=== PATIENT | male | born 1935 | race Caucasian/White ===

== ENCOUNTER 2021-02-21 11:07 | Inpatient (IN) ==
[2021-02-21] MEDS ORDERED: SODIUM CHLORIDE 0.9% 1,000 ML IV STA (12:02)
[2021-02-21 12:47] LABS: Basophils # 0.1 10*3/uL (0.0-0.2); Basophils % 0.4 % (0.0-0.8); Eosinophils # 0.4 10*3/uL (0.0-0.87); Eosinophils % 2.6 % (0.00-10.9); Hematocrit 29.5 VOL% (42.0-52.0); Hemoglobin 9.6 GM/DL (14.0-18.0); Immature Granulocytes % 12.8 %; Immature Granulocytes Absolute 1.71 #; Lymphocytes # 2.4 10*3/uL (1.4-4.0); Lymphocytes % 18.2 % (21.2-54.2); Mean Corpuscular HGB Conc 32.5 GM/DL (32-36); Mean Corpuscular Volume 101.4 FL (87-102); Mean Platelet Volume 9.6 FL (9.6-12.0); Monocytes % 10.7 % (1.7-12.7); Neutrophils % 55.3 % (38.7-73.9); Platelet Count 257 T/CUMM (130-400); Red Blood Count 2.91 MC/CUMM (3.8-5.5); Red Cell Distribution Width 15.9 % (9.3-17.3); White Blood Count 13.4 T/CUMM (4-12)
[2021-02-21 13:00] LABS: PT Patient Result 11.1 SECS (10.5-12.0); Partial Thromboplastin Time 23.6 SECS (23.9-33.8)
[2021-02-21 13:03] LABS: Alanine Aminotransferase 19 U/L (16-61); Albumin 2.5 G/DL (3.4-5.0); Alkaline Phosphatase 72 U/L (45-117); Aspartate Amino Transferase 18 U/L (0-37); Bilirubin,Total < 0.39 MG/DL (0.2-1.0); Blood Urea Nitrogen 17 MG/DL (7-18); Calcium 8.3 MG/DL (8.5-10.1); Carbon Dioxide 27 MMOL/L (21-32); Estimated Glom Filtration Rate 56 ML/MIN; Glucose 117 MG/DL (74-106); Sodium 143 MMOL/L (136-145); Total Protein 6.1 G/DL (6.4-8.2)
[2021-02-21 13:15] LABS: Atypical Lymphocytes Few; Band Neutrophils 9 % (0-10); Eosinophils 5 % (0-10); Lymphocytes 18 % (20-55); Metamyelocytes 3 %; Myelocytes 4 %; Platelet Estimate Normal; Segmented Neutrophils 54 % (50-85); Total Cells Counted 100
[2021-02-21 13:16] LABS: Anisocytosis Slight; Macrocytosis 1+
[2021-02-21] MEDS: LEVOFLOXACIN INJ 500 MG/100 ML PREMIX IV SCH (14:18)
[2021-02-21] MEDS ORDERED: DOCUSATE SODIUM 100 MG CAPSULE PO PRN (14:22)
[2021-02-21] MEDS ORDERED: ACETAMINOPHEN 325 MG TABLET PO PRN (14:22)
[2021-02-21] MEDS ORDERED: GLUCAGON 1 MG VIAL IM PRN (14:22)
[2021-02-21] MEDS ORDERED: DEXTROSE 50% 25 GM/50 ML VIAL IV PRN (14:22)
[2021-02-21] MEDS ORDERED: ONDANSETRON 4 MG/2 ML VIAL IV PRN (14:22)
[2021-02-21] MEDS ORDERED: ALBUTEROL/IPRATROPIUM 3 ML NEB RESP TX PRN (14:27)
[2021-02-21] MEDS ORDERED: PANTOPRAZOLE 40 MG VIAL IV SCH (14:30)
[2021-02-21] MEDS: PANTOPRAZOLE 40 MG VIAL IV SCH ×2 (15:05→20:55)
[2021-02-21] MEDS: SODIUM CHLORIDE 0.9% 1,000 ML IV SCH (15:05)
[2021-02-21] MEDS: metroNIDAZOLE INJ 500 MG/100 ML PREMIX IV SCH (15:06)
[2021-02-21 15:27] LABS: Folate > 24.00 NG/ML (5.38-24.0); Vitamin B12 763 PG/ML (211-911)
[2021-02-21 15:34] LABS: % Iron Saturation 37.4 % (18-50); Ferritin 320.8 ng/ml (26-388)
[2021-02-21 20:10] LABS: Hematocrit 27.2 VOL% (42.0-52.0); Hemoglobin 8.7 GM/DL (14.0-18.0)
[2021-02-21] MEDS: TAMSULOSIN 0.4 MG CAPSULE PO SCH (20:55)
[2021-02-21] MEDS: ATORVASTATIN 20 MG TABLET PO SCH (20:55)
[2021-02-21] MEDS: GABAPENTIN 400 MG CAPSULE PO SCH (20:55)
[2021-02-21] MEDS: MUPIROCIN 2% OINT 22 GM TUBE TOP SCH (20:59)
[2021-02-22] MEDS: metroNIDAZOLE INJ 500 MG/100 ML PREMIX IV SCH ×4 (00:38→23:41)
[2021-02-22 06:05] LABS: Basophils # 0.1 10*3/uL (0.0-0.2); Basophils % 0.9 % (0.0-0.8); Eosinophils # 0.6 10*3/uL (0.0-0.87); Eosinophils % 4.8 % (0.00-10.9); Hematocrit 27.1 VOL% (42.0-52.0); Hemoglobin 8.7 GM/DL (14.0-18.0); Immature Granulocytes % 11.5 %; Immature Granulocytes Absolute 1.46 #; Lymphocytes % 23.9 % (21.2-54.2); Mean Corpuscular HGB Conc 32.1 GM/DL (32-36); Mean Corpuscular Volume 102.7 FL (87-102); Mean Platelet Volume 9.7 FL (9.6-12.0); Monocytes % 11.3 % (1.7-12.7); Neutrophils % 47.6 % (38.7-73.9); Platelet Count 281 T/CUMM (130-400); Red Blood Count 2.64 MC/CUMM (3.8-5.5); White Blood Count 12.7 T/CUMM (4-12)
[2021-02-22 06:35] LABS: Band Neutrophils 4 % (0-10); Eosinophils 11 % (0-10); Hypochromasia 1+; Lymphocytes 27 % (20-55); Microcytosis 1+; Myelocytes 3 %; Platelet Estimate Adequate; Segmented Neutrophils 49 % (50-85); Total Cells Counted 100
[2021-02-22 06:44] LABS: Albumin 2.2 G/DL (3.4-5.0); Bilirubin,Total 1.1 MG/DL (0.2-1.0); Osmolality,Calculated 282.1 MOS/KG (273-304); Potassium 3.6 MMOL/L (3.5-5.1); Risk Ratio 3.36; Thyroid Stimulating Hormone 2.28 uIU/ml (0.358-3.74); Total Protein 5.6 G/DL (6.4-8.2); VLDL CHOLESTEROL 29.8 MG/DL
[2021-02-22] MEDS: METOPROLOL SUCCINATE XL 100 MG TABLET PO SCH (09:04)
[2021-02-22] MEDS: DUTASTERIDE 0.5 MG CAPSULE PO SCH (09:04)
[2021-02-22] MEDS: TAMSULOSIN 0.4 MG CAPSULE PO SCH ×2 (09:04→21:18)
[2021-02-22] MEDS: MUPIROCIN 2% OINT 22 GM TUBE TOP SCH ×2 (09:04→21:24)
[2021-02-22] MEDS: POLYETHYLENE GLYCOL POWDER 17 GM PACK PO SCH ×3 (09:05→21:18)
[2021-02-22] MEDS: PANTOPRAZOLE 40 MG VIAL IV SCH ×2 (09:05→21:24)
[2021-02-22] MEDS: BREO ELLIPTA INH SCH (09:06)
[2021-02-22] MEDS: LEVOFLOXACIN INJ 500 MG/100 ML PREMIX IV SCH (14:23)
[2021-02-22 16:01] LABS: Hematocrit 24.1 VOL% (42.0-52.0)
[2021-02-22] MEDS: ATORVASTATIN 20 MG TABLET PO SCH (21:18)
[2021-02-22] MEDS: GABAPENTIN 400 MG CAPSULE PO SCH (21:19)
[2021-02-23 05:18] LABS: Basophils # 0.1 10*3/uL (0.0-0.2); Basophils % 0.9 % (0.0-0.8); Eosinophils # 0.9 10*3/uL (0.0-0.87); Eosinophils % 7.5 % (0.00-10.9); Hematocrit 26.4 VOL% (42.0-52.0); Hemoglobin 8.4 GM/DL (14.0-18.0); Immature Granulocytes % 13.4 %; Immature Granulocytes Absolute 1.52 #; Lymphocytes # 3.2 10*3/uL (1.4-4.0); Lymphocytes % 28.3 % (21.2-54.2); Mean Corpuscular HGB Conc 31.8 GM/DL (32-36); Mean Corpuscular Volume 102.3 FL (87-102); Mean Platelet Volume 9.5 FL (9.6-12.0); Monocytes % 9.9 % (1.7-12.7); Platelet Count 292 T/CUMM (130-400); Red Blood Count 2.58 MC/CUMM (3.8-5.5); Red Cell Distribution Width 15.9 % (9.3-17.3); White Blood Count 11.4 T/CUMM (4-12)
[2021-02-23 05:41] LABS: Band Neutrophils 2 % (0-10); Eosinophils 7 % (0-10); Lymphocytes 27 % (20-55); Myelocytes 1 %; Segmented Neutrophils 50 % (50-85); Total Cells Counted 100
[2021-02-23 05:42] LABS: Hypochromasia 1+; Microcytosis 1+; Platelet Estimate Adequate
[2021-02-23 05:57] LABS: Calcium 8.3 MG/DL (8.5-10.1); Osmolality,Calculated 285.8 MOS/KG (273-304); Potassium 3.7 MMOL/L (3.5-5.1)
[2021-02-23] MEDS: metroNIDAZOLE INJ 500 MG/100 ML PREMIX IV SCH ×2 (07:17→15:42)
[2021-02-23] MEDS: PANTOPRAZOLE 40 MG VIAL IV SCH (10:13)
[2021-02-23] MEDS: METOPROLOL SUCCINATE XL 100 MG TABLET PO SCH (10:15)
[2021-02-23] MEDS: TAMSULOSIN 0.4 MG CAPSULE PO SCH ×2 (10:15→20:52)
[2021-02-23] MEDS: DUTASTERIDE 0.5 MG CAPSULE PO SCH (10:15)
[2021-02-23] MEDS: POLYETHYLENE GLYCOL POWDER 17 GM PACK PO SCH ×3 (10:15→20:53)
[2021-02-23] MEDS: MUPIROCIN 2% OINT 22 GM TUBE TOP SCH ×2 (10:15→20:53)
[2021-02-23] MEDS: BREO ELLIPTA INH SCH (10:42)
[2021-02-23] MEDS: SODIUM CHLORIDE 0.9% 1,000 ML IV SCH (10:45)
[2021-02-23 10:53] LABS: Hematocrit 24.9 VOL% (42.0-52.0); Hemoglobin 8.3 GM/DL (14.0-18.0)
[2021-02-23] MEDS ORDERED: MAGNESIUM HYDROXIDE SUSP 30 ML UDCUP PO ONE (12:00)
[2021-02-23] MEDS: LEVOFLOXACIN INJ 500 MG/100 ML PREMIX IV SCH (14:18)
[2021-02-23] MEDS ORDERED: SODIUM CHLORIDE 0.9% 1,000 ML IV PRN (19:54)
[2021-02-23] MEDS: PANTOPRAZOLE 40 MG TABLET PO SCH (20:52)
[2021-02-23] MEDS: GABAPENTIN 400 MG CAPSULE PO SCH (20:52)
[2021-02-23] MEDS: AMOXICILLIN/CLAV 875 MG TABLET PO SCH (20:53)
[2021-02-23] MEDS: ATORVASTATIN 20 MG TABLET PO SCH (20:53)
[2021-02-24 05:24] LABS: Basophils # 0.1 10*3/uL (0.0-0.2); Basophils % 1.1 % (0.0-0.8); Eosinophils # 0.8 10*3/uL (0.0-0.87); Eosinophils % 7.7 % (0.00-10.9); Hematocrit 25.5 VOL% (42.0-52.0); Hemoglobin 8.3 GM/DL (14.0-18.0); Immature Granulocytes % 10.9 %; Immature Granulocytes Absolute 1.07 #; Lymphocytes % 30.2 % (21.2-54.2); Mean Corpuscular HGB Conc 32.5 GM/DL (32-36); Mean Platelet Volume 9.5 FL (9.6-12.0); Neutrophils % 39.1 % (38.7-73.9); Platelet Count 322 T/CUMM (130-400); Red Cell Distribution Width 15.9 % (9.3-17.3); White Blood Count 9.8 T/CUMM (4-12)
[2021-02-24 05:40] LABS: Calcium 8.2 MG/DL (8.5-10.1)
[2021-02-24 05:49] LABS: Band Neutrophils 3 % (0-10); Eosinophils 14 % (0-10); Lymphocytes 34 % (20-55); Myelocytes 2 %; Platelet Estimate Adequate; Segmented Neutrophils 42 % (50-85); Total Cells Counted 100
[2021-02-24 05:50] LABS: Atypical Lymphocytes Few; Hypochromasia 1+; Microcytosis 1+
[2021-02-24] MEDS: DUTASTERIDE 0.5 MG CAPSULE PO SCH (09:38)
[2021-02-24] MEDS: POLYETHYLENE GLYCOL POWDER 17 GM PACK PO SCH ×2 (09:38→15:00)
[2021-02-24] MEDS: AMOXICILLIN/CLAV 875 MG TABLET PO SCH (09:39)
[2021-02-24] MEDS: METOPROLOL SUCCINATE XL 100 MG TABLET PO SCH (09:39)
[2021-02-24] MEDS: PANTOPRAZOLE 40 MG TABLET PO SCH (09:39)
[2021-02-24] MEDS: MUPIROCIN 2% OINT 22 GM TUBE TOP SCH (09:39)
[2021-02-24] MEDS: TAMSULOSIN 0.4 MG CAPSULE PO SCH (09:39)
[2021-02-24] MEDS: BREO ELLIPTA INH SCH (10:04)
[2021-02-24 16:21] LABS: Hematocrit 30.2 VOL% (42.0-52.0); Hemoglobin 10.1 GM/DL (14.0-18.0)
[2021-02-24 16:27] VITALS: BP 131/70
== END 2021-02-24 18:00 | disposition home or self-care (01) | DRG 378 ==
LOC: EDBD → EDUNIT# → N.ED 11:07 → N.EDINP 11:07 → N.3E 16:39
PROVIDERS: ADMIT Internal Medicine; ATTEND Internal Medicine